=== PATIENT | male | born 1995 | race Native Hawaiian/Other Pacific Islander ===

== ENCOUNTER 2018-01-28 21:31 | Emergency (ER) | payer OTHER ==
[~2018-01-28] VITALS: Ht 170.2 cm; Wt 68.0 kg
[2018-01-28 22:31] LABS: PLATELET COUNT 137 K/uL (142-355)
[2018-01-28 23:38] VITALS: BP 125/84; TEMP 97.7
== END 2018-01-28 23:41 | disposition home or self-care (01) ==
LOC: ED 21:31
DX: S40.012A Contusion of left shoulder, initial encounter (principal); S20.219A Contusion of unspecified front wall of thorax, initial encounter; S80.02XA Contusion of left knee, initial encounter; R55 Syncope and collapse; V80.018A Animal-rider injured by fall from or being thrown from other animal in noncollision accident, initial encounter; Y92.89 Other specified places as the place of occurrence of the external cause
CPT/HCPCS: 36415; 85027; 96374; 99283; J1885

== ENCOUNTER 2021-01-01 20:23 | Emergency (ER) | payer OTHER ==
[~2021-01-01] VITALS: Ht 172.7 cm; Wt 74.8 kg
[2021-01-01 22:36] VITALS: BP 113/63; TEMP 99
== END 2021-01-01 22:36 | disposition home or self-care (01) ==
LOC: ED 20:23
DX: L73.2 Hidradenitis suppurativa (principal)
CPT/HCPCS: 36415; 96365; 96375; 99284; J1885; J2405; J3370